=== PATIENT | male | born 1965 | race Caucasian/White ===

== ENCOUNTER 2020-07-07 15:26 | Inpatient (IN) | payer OTHER ==
[~2020-07-07] VITALS: Ht 157.5 cm; Wt 81.2 kg
[2020-07-07] VITALS (36 sets, daily range): BP systolic 40–171; BP diastolic 13–128
[~2020-07-07 15:26] MED LIST: CIPRO500 MG PO; CIPROFLOXACIN500 M1 PO; FLAGYL500 MG PO; HYDROCODONE-AP1 EAC6 PO; LORTAB 5 MG/5001 TAB PO; NORCO 5-325 TA1 EACH PO; PRINIVIL20 MG PO
[2020-07-07 16:28] LABS: HEMOGLOBIN 15.6 gm/dL (14.0-18.0); MCH 32.2 pg (26.0-34.0); MCHC 33.9 g/dL (28.0-37.0); MCV 94.9 fL (80.0-100.0); RBC 4.84 mil/uL (4.50-6.00); RDW 12.8 % (10.5-14.5); WBC 19.5 thou/uL (4.0-11.0)
[2020-07-07 16:44] LABS: CALCIUM 8.2 mg/dL (8.5-10.1); CREATININE 1.2 mg/dL (0.7-1.3); POTASSIUM 3.5 mmol/L (3.5-5.1); TROPONIN-I 0.15 ng/mL (<0.06)
[2020-07-07 19:46] LABS: BE(vivo) -19.4 mmol/L (-2 to +3); HCO3 13.5 mmol/L (22.0-26.0); PCO2 60.9 mmHg (35.0-45.0); PO2 92.3 mmHg (80.0-100.0); pH 6.962 (7.360-7.450); sO2 91.2 % (92.0-98.0)
[2020-07-07 19:51] LABS: HEMATOCRIT 52.8 % (42.0-52.0); MCH 32.4 pg (26.0-34.0); MCHC 33.8 g/dL (28.0-37.0); MCV 95.7 fL (80.0-100.0); PLATELET COUNT 271 thou/uL (150-400); RBC 5.51 mil/uL (4.50-6.00); RDW 12.7 % (10.5-14.5); WBC 23.3 thou/uL (4.0-11.0)
[2020-07-07 19:56] LABS: HEMOGLOBIN 17.8 gm/dL (14.0-18.0)
[2020-07-07 19:58] LABS: CALCIUM 8.7 mg/dL (8.5-10.1); CREATININE 1.4 mg/dL (0.7-1.3)
--- NOTE | 2020-07-07 19:58 | NUR ---
PT CODED AT 1853; PT WENT INTO PULSELESS V-TACH, SEE CODE SHEET FOR FURTHER DETAILS. ROSC OBTAINED AT 1927. DR. SHEPHERD HERE DURING CODE, SPOKE WITH PT'S PRIOR TO ROSC OBTAINED. PARKING LINE PAINTER TEAM CALLED IN. PT BEING PREPARED TO GO TO PARKING LINE PAINTER. MONITOR SINUS TACH AT 102.
[2020-07-07 20:43] LABS: ABSOLUTE NEUTROPHILS 18.6 thou/uL (1.4-8.2)
--- NOTE | 2020-07-07 20:46 | NUR ---
ASSUMED CARE AT POST DIRECTOR OF RESTAURANT, PT ARRIVED BY BED BY RN AND TECH FROM DIRECTOR OF RESTAURANT. PT A&OX4. DURING ADMISSION AT 17:55, PT CONVERTED TO V TACH FOR [address] SHEPHERD PAGED AND NOTIFIED, NEW ORDERS RECEIVED. AT 18:45, PT CODED, DR. BUCKLEY ARRIVED. SEE CODE SHEET FOR DETAILS. WHEN DR. SHEPHERD ARRIVED, RN GAVE REPORT AND UPDATED DR. SHEPHERD. DR. SHEPHERD CALLED PT'S , LIDYA, GAVE HER PT STATUS. DR. MARTINES CONSULTED, PAGED AND NOTIFIED OT INTUBATION AND CURRENT STATUS. NEW ORDERS RECEIVED. DR. SHEPHERD DEFERRED HYPOTHERMIA PROTOCOL TO DR. MARTINES TO DETERMINE. RN ASKED DR. MARTINES, DR. MARTINES INSTRUCTED TO WAIT UNTIL PT RETURNS FROM DIRECTOR OF RESTAURANT AND ASSESS NEURO STATUS TO SEE IF HE FOLLOWS COMMANDS, AND CALL HIM WITH RESULTS TO DETERMINE IF HYPOTHERMIA PROTOCOL IS APPROPRIATE. RN TOLD WATER/WASTEWATER PROJECT ENGINEER RN THE ORDERKYLIE.
[2020-07-07 20:53] LABS: BE(vivo) -14.7 mmol/L (-2 to +3); PCO2 42.6 mmHg (35.0-45.0); PO2 94.2 mmHg (80.0-100.0); pH 7.135 (7.360-7.450); sO2 94.8 % (92.0-98.0)
[2020-07-07 20:55] LABS: BE(vivo) -15.2 mmol/L (-2 to +3); HCO3 15.1 mmol/L (22.0-26.0); PCO2 52.1 mmHg (35.0-45.0); PO2 46.4 mmHg (80.0-100.0); sO2 65.5 % (92.0-98.0)
[2020-07-07 22:29] LABS: CREATININE 1.9 mg/dL (0.7-1.3)
[2020-07-07 22:30] LABS: POTASSIUM 4.9 mmol/L (3.5-5.1)
--- NOTE | 2020-07-07 22:43 | NUR ---
Pt back from cath at 2150 with balloon pump.
[2020-07-07 22:48] LABS: BE(vivo) -11.3 mmol/L (-2 to +3); HCO3 14.8 mmol/L (22.0-26.0); PCO2 34.6 mmHg (35.0-45.0); PO2 140.6 mmHg (80.0-100.0); sO2 98.4 % (92.0-98.0)
[2020-07-07 22:49] LABS: pH 7.249 (7.360-7.450)
[2020-07-07 23:00] LABS: HEMATOCRIT 50.4 % (42.0-52.0); HEMOGLOBIN 17.1 gm/dL (14.0-18.0); MCH 32.6 pg (26.0-34.0); MCHC 33.9 g/dL (28.0-37.0); MCV 96.2 fL (80.0-100.0); RBC 5.24 mil/uL (4.50-6.00); RDW 12.9 % (10.5-14.5); WBC 28.9 thou/uL (4.0-11.0)
[2020-07-07 23:11] LABS: INR 1.2; PROTIME 13.3 Seconds (9.3-11.4)
[2020-07-07 23:14] LABS: HCO3 13.5 mmol/L (22.0-26.0); PCO2 30.8 mmHg (35.0-45.0); PO2 179.5 mmHg (80.0-100.0)
[2020-07-07 23:15] LABS: pH 7.259 (7.360-7.450)
--- NOTE | 2020-07-07 23:40 | NUR ---
Pt not tolerating Propofol for sedation, becomes very bradycardic and hypotensive. Dr. Garcia notified and Propofol dc'd; pt started on Fentanyl and Versed gtts for sedation. During shredding machine knife changer pt became very awake, very aggitated, did not respond to therapeutic communication or touch. Pt calm and RAAS -3 after Fentanyl and Versed gtts infusing.
[2020-07-08] VITALS (56 sets, daily range): BP systolic 74–138; BP diastolic 24–96
--- NOTE | 2020-07-08 01:20 | NUR ---
Pt very bradycardic and hypotensive with sedation, heart rate as low as 48, sinus clary with BBB. Fentanyl and Versed gtts titrated down without much improvement in blood pressure or heart rate. Dr. Garcia notified and Dopamine gtt started at 10 mcg/kg/min at 0100. Pt awake and vomitted moderate amount of gastric contents at 0105. Nursing staff in room with pt and able to immediately suction oral cavity. Zofran order obtained and Fentanyl and Versed gtts titrated to obtain RAAS of -3 (moderate sedation). No further vomitting after Zofran given; BP and heart rate within acceptable parameters after Dopamine started (HR 89, BP 142/63).
[2020-07-08 05:17] LABS: BE(vivo) -5.5 mmol/L (-2 to +3); HCO3 18.9 mmol/L (22.0-26.0); PCO2 35.1 mmHg (35.0-45.0); PO2 171.3 mmHg (80.0-100.0); sO2 99.1 % (92.0-98.0)
[2020-07-08 06:20] LABS: HEMATOCRIT 52.5 % (42.0-52.0); HEMOGLOBIN 17.6 gm/dL (14.0-18.0); MCH 31.9 pg (26.0-34.0); MCHC 33.4 g/dL (28.0-37.0); MCV 95.4 fL (80.0-100.0); RBC 5.5 mil/uL (4.50-6.00); RDW 12.8 % (10.5-14.5); WBC 31.5 thou/uL (4.0-11.0)
[2020-07-08 06:45] LABS: ALBUMIN 3.6 g/dL (3.4-5.0); ANION GAP 14 mmol/L (7-16); BUN 31 mg/dL (7-18); CALCIUM 8.6 mg/dL (8.5-10.1); CHLORIDE 94 mmol/L (98-107); CHOLESTEROL 178 mg/dL (<200); CO2 23 mmol/L (21-32); CREATININE 2.1 mg/dL (0.7-1.3); GLUCOSE 451 mg/dL (74-106); HDL CHOLESTEROL 48 mg/dL (>40); LDL CHOLESTEROL 110 mg/dL (<100); POTASSIUM 4.8 mmol/L (3.5-5.1); SGOT 736 U/L (15-37); SGPT 196 U/L (30-65); SODIUM 131 mmol/L (136-145); TC:HDL 3.7 Ratio (Not establshd); TOTAL BILIRUBIN 1.4 mg/dL (0.2-1.0); TOTAL PROTEIN 7.3 g/dL (6.4-8.2); TRIGLYCERIDE 104 mg/dL (<150); VLDL 21 mg/dL (<40)
[2020-07-08 07:04] LABS: TROPONIN-I > 200.00 ng/mL (<0.06)
--- NOTE | 2020-07-08 08:35 | H ---
[facility] [place] [address] HISTORY AND PHYSICAL Name: JON BEEBE Room #: 240-P ADM IN M.R.#: [id number] Admission: 07/07/20 Attend Phys: Michael Dsouza MD Discharge: Date of : 61 Report #: [id number] THIS REPORT FOR: cc: Markus George Aaron DO Park,Michael Hernández MD ~ DATE OF SERVICE: 07/07/2020 INDICATION: Chest pain. HISTORY OF PRESENT ILLNESS: This is a 55-year-old gentleman with a history of hypertension, diabetes mellitus, tobacco use, presenting with acute onset of chest pain. He was working outside when he developed substernal chest pain radiating down the left arm. It was associated with shortness of breath. He presented immediately to the ER at [facility], the initial EKG revealed ST elevation in the precordial and high lateral leads. He was treated with heparin, aspirin, nitro and morphine. He was airlifted to [facility] for emergent cardiac catheterization. There is no history of nausea or diarrhea. The patient reports having recent symptoms of a cold for the past 2 days. ALLERGIES: TETANUS AND PENICILLIN. PAST MEDICAL HISTORY: Diabetes mellitus and hypertension. MEDICATIONS: Include metformin and lisinopril. SOCIAL HISTORY: Uses chewing tobacco on a daily basis. Negative cigarettes. FAMILY HISTORY: Father with a history of an [place] in his 60s. REVIEW OF SYSTEMS: See HPI. PHYSICAL EXAMINATION: VITAL SIGNS: Blood pressure is 105/90 and heart rate is 120 beats per minute. GENERAL APPEARANCE: This is a well-developed, well-nourished male in moderate distress. HEENT: Normocephalic, atraumatic. Oral mucosa is moist. NECK: Supple. LUNGS: Diminished breath sounds at the bases. CARDIAC: Tachycardic. S1, S2 positive. ABDOMEN: Soft, nontender. EXTREMITIES: No edema, no cyanosis. DIAGNOSTIC STUDIES: ECG from [facility] reveals sinus [facility] [address] [place] [address] HISTORY AND PHYSICAL Name: JON BEEBE Room #: 240-P [facility] IN .R.#: [id number] Admission: 07/07/20 Attend Phys: Michael Dsouza MD Discharge: Date of : 61 Report #: [id number] rhythm with a 2-[address] elevation in the precordial leads, leads I and aVL. ASSESSMENT AND PLAN: 1. Acute anterolateral myocardial infarction. The patient will be taken emergently to the cardiac laborer wood preserving plant. 2. Hypertension. We will resume lisinopril when blood pressure allows. 3. Tobacco use, complete cessation of all tobacco products has been highly encouraged. 4. Hypercholesterolemia, we will need to treat with statin therapy. 5. Diabetes mellitus, check fingersticks and manage accordingly as per hospitalist. <ELECTRONICALLY SIGNED> By: Michael Dsouza MD 07/08/20 0835 1635 1712 MD divina Jacobs
[2020-07-08 10:29] LABS: BE(vivo) -2.5 mmol/L (-2 to +3); HCO3 20.6 mmol/L (22.0-26.0); PCO2 32.5 mmHg (35.0-45.0); PO2 103.7 mmHg (80.0-100.0); sO2 97.9 % (92.0-98.0)
--- NOTE | 2020-07-08 18:14 | NUR ---
ASSUMED CARE AT 0700, ASSESSMENT AND VITAL SIGNS COMPLETED PER ICU PROTOCOL. DR. SHEPHERD BEDSIDE. INSTRUCTED RN TO CUT LEVOPHED AT CHARTED QUANTITIES, DR. SHEPHERD STAYED THE ENTIRE TIME TO MONITOR PATIENT. DR. SHEPHERD WANTED PT TRANSFERRED TO REPLACED BY [facility]. RN LEFT UNIT WITH RNX2, ABORIGINAL EDUCATION TEACHER, AND FIREFIGHTERX2 WITH BALLOON PUMP, IV PUMPS AND GTTS INFUSING, AND ON THE MONITOR. PT STABLE THROUGH TRANSPORT AND TRANSFERRING ONTO THE UNIT. [facility] USED THEIR PUMPS AND TUBING, SWITCHED TO THEIR BALLOON PUMP. REPORT GIVEN TO [facility] BEFORE TRANSPORT TO [facility] RN.
--- NOTE | 2020-07-09 07:37 | EKG ---
[address] [place] [address] ELECTROCARDIOGRAM REPORT Name: JON BEEBE Room #: 240-P [facility] IN .R.#: [id number] Admission: 07/07/20 Attend Phys: Michael Dsouza MD Discharge: 07/08/20 Date of : 61 Report #: [id number] [facility] Test Date: 2020-07-07 Test Time: 19:32:58 Pat Name: JON BEEBE Department: Room: 240 P Gender: M Student Life Vice President: YONATAN : 1965 Requested By: Michael Dsouza Order Number: [id number] : Ronaldo Dos Santos Measurements Intervals [place] Rate: 109 P: 67 ME: 169 QRS: -19 QRSD: 106 T: 85 QT: 345 QTc: 465 Interpretive Statements Sinus tachycardia Probable left atrial enlargement Borderline left axis deviation Anterolateral infarct, acute (LAD) No previous ECG available for comparison Electronically Signed On 07-09-2020 7:37:41 STUDY LEAD by Ronaldo Dos Santos [email or web address] <ELECTRONICALLY SIGNED> By: Ronaldo Dos Santos MD, [facility] 07/09/20 0737 31 31 Ronaldo Dos Santos MD, FACC /EPI
--- NOTE | 2020-07-09 07:38 | EKG ---
[place] [address] [facility] [facility] [place] [place] [address] ELECTROCARDIOGRAM REPORT Name: JON BEEBE Room #: 240-P [facility].#: [id number] Admission: 07/07/20 Attend Phys: Michael Dsouza MD Discharge: 07/08/20 Date of : 61 Report #: [id number] [facility] Test Date: 2020-07-07 Test Time: 22:22:33 Pat Name: JON BEEBE Department: Room: Gender: M Sole Cementer: UNKNOWN : 1965 Requested By: Michael Dsouza Order Number: [id number] : Ronaldo Dos Santos Measurements Intervals [place] Rate: 61 P: 34 RI: 154 QRS: 20 QRSD: 88 T: 25 QT: 425 QTc: 428 Interpretive Statements Sinus rhythm Lateral infarct, acute (LAD) Anterior infarct, old No previous ECG available for comparison Electronically Signed On 07-09-2020 7:38:05 CARDIOVASCULAR RADIOLOGIC TECHNOLOGIST by Ronaldo Dos Santos [email or web address] <ELECTRONICALLY SIGNED> By: Ronaldo Dos Santos MD, [facility] 07/09/20 0738 2222 Ronaldo Dos Santos MD, FACC /EPI
--- NOTE | 2020-07-09 07:38 | EKG ---
[place] [address] [facility] [place] [address] ELECTROCARDIOGRAM REPORT Name: JON BEEBE Room #: 240-[facility] IN .R.#: [id number] Admission: 07/07/20 Attend Phys: Michael Dsouza MD Discharge: 07/08/20 Date of : 61 Report #: [id number] [facility] Test Date: 2020-07-08 Test Time: 07:20:00 Pat Name: JON BEEBE Department: Room: 240 P Gender: M Soft Drink Powder Mixer: : 1965 Requested By: Michael Dsouza Order Number: [id number] : Ronaldo Dos Santos Measurements Intervals [place] Rate: 95 P: 35 TN: 166 QRS: -17 QRSD: 80 T: 55 QT: 362 QTc: 455 Interpretive Statements Sinus rhythm Extensive anterior infarct, acute (LAD) Compared to ECG 07/07/2020 22:22:33 No significant changes Electronically Signed On 07-09-2020 7:38:27 OIL LABORATORY ANALYST by Ronaldo Dos Santos [email or web address] <ELECTRONICALLY SIGNED> By: Ronaldo Dos Santos MD, [facility] 07/09/20737 9 9 Ronaldo Dos Santos MD, FACC /EPI
--- NOTE | 2020-07-09 10:25 | 2DMMODE ---
[facility] [place] [address] 2 D/M-MODE ECHOCARDIOGRAM Name: JON BEEBE Room #: 240-P DIS IN M.R.#: [id number] Admission: 07/07/20 Attend Phys: Michael Dsouza MD Discharge: 07/08/20 Date of : 61 Report #: [id number] THIS REPORT FOR: cc: Markus George Aaron DO Park, Jin S. MD ~ APPROVED REPORT Study performed: 07/07/2020 20:51:49 EXAM: Limited 2D and color flow Echocardiogram Patient Location: [facility] Room #: 240 Status: stat Other Information Study Quality: Fair Left Ventricle The left ventricle is normal size. Left ventricular systolic function is at least moderately decreased. Mitral Valve Trace mitral regurgitation. Tricuspid Valve Mild to moderate tricuspid regurgitation. Pericardium There is no pericardial effusion. <Conclusion> The left ventricle is normal size. Left ventricular systolic function is at least moderately decreased. Trace mitral regurgitation. Mild to moderate tricuspid regurgitation. There is no pericardial effusion. <ELECTRONICALLY SIGNED> By: Michael Dsouza MD 07/09/20 1025 1025 1025 Michael Dsouza MD /INF
--- NOTE | 2020-07-09 10:32 | CATHLAB ---
[facility] [place] [address] INVASIVE PROCEDURE REPORT Name: JON BEEBE Room #: 240-P [facility] IN M.R.#: [id number] Admission: 07/07/20 Attend Phys: Michael Dsouza MD Discharge: 07/08/20 Date of : 61 Report #: [id number] THIS REPORT FOR: cc: Markus George Aaron DO Park, Jin S. MD ~ APPROVED REPORT Study performed: 07/07/2020 15:29:29 Patient Details Patient Status: ED Room #: 240 The patient is a 55 year-old male Event Personnel Michael Dsouza Clothing Cutter, Adelina Nazario RN RN, Yoanna Rueda RT(R)() Shraddha Valle Ja'net RTR Monitor Procedures Performed Left Heart Cath w/or w/o Coronaries [id number] [facility] Revasc Chronic Ttl Occl Single LAD C9607 CTOREVSING Indication STEMI (>0 to less than or equal to 6 hours), Dyspnea, Chest pain, The patient presented to [facility] with chest pain, EKG revealed ST elevation in leads V1 through V5, I and aVL. He was treated with heparin, aspirin, nitro and morphine. He was transferred via helicopter to [facility] for emergent cardiac catheterization. Risk Factors Family History, Hypercholesterolemia, Hypertension, Diabetes Tobacco History (Chewing tobacco) Procedure Narrative The Right Groin^ was infiltrated with 1% Lidocaine subcutaneous anesthesia. A PINNACLE 6FR Sheath #[id number] sheath was inserted into the RFA^. Coronary angiography was performed using coronary diagnostic catheters. The right coronary system was accessed and visualized with a JR4 catheter. The left coronary system was accessed and visualized with a JL4 catheter. The left ventricle was accessed and visualized with a PIGTAIL catheter. The patient tolerated the procedure well and there were no complications associated with the procedure. [facility] [place] [address] INVASIVE PROCEDURE REPORT Name: JON BEEBE SHAISTA Room #: 240-P COUNTS INCLUDE 234 BEDS AT THE [facility].#: [id number] Admission: 07/07/20 Attend Phys: Michael Dsouza MD Discharge: 07/08/20 Date of : 61 Report #: [id number] Intraoperative Conscious Sedation Sedation start time: 15:39 Case end Time: 16:26 Fluoro Time: 10.13 minutes Dose: DAP 89904.20 cGycm2 1496 mGy Contrast Type and Amount: Visipaque 295 ml Coronary Angiography The patient's coronary anatomy is right dominant. Diagnostic Cath Left Main The left main artery is a patent vessel, with no flow-limiting lesions. LAD The LAD has a total occlusion in the proximal segment. After reperfusion, there is mild to moderate disease in the midsegment. Diagonal 1 This is a small to moderate-sized caliber vessel, patent with no flow-limiting lesions. Diagonal 2 This is a small to moderate-sized caliber vessel, patent with no flow-limiting lesions. Circumflex The left circumflex artery supplies 1 obtuse marginal artery. OM1 This is a moderate-sized caliber vessel, with mild disease in the midsegment. Right Coronary The RCA has mild diffuse disease in the mid and distal segments, 20 to 30%. R PDA The PDA is a patent vessel, terminates in the mid segment of the inferior wall. RPLV This branch has no flow-limiting lesions and terminates early in its course. It does not supply a significant portion of the inferolateral wall. Left Ventriculography The left ventricle is dilated in size with Diminished contractility. The left ventricular ejection fraction is estimated to be 25-30%. Left ventricular wall motion abnormalities are present. There is severe hypokinesis of the anterolateral, apical and mid to distal inferior segments. Hemodynamics The aortic pressure is 145/102 mmHg with a mean of 120 mmHg. The left ventricular pressure is 127/12 mmHg with a mean of mmHg. The left ventricular end diastolic pressure is 30 mmHg. Pullback from the left ventricle to the aorta revealed no gradient across the aortic [facility] [address] [place] [address] INVASIVE PROCEDURE REPORT Name: JON BEEBE Room #: 240-P [facility] IN M.R.#: [id number] Admission: 07/07/20 Attend Phys: Michael Dsouza MD Discharge: 07/08/20 Date of : 61 Report #: [id number] valve. PCI Technique Lesion Percutaneous coronary intervention was performed on the proximal left anterior descending artery segment. The lesion stenosis prior to intervention was 100% with ARNAV 0 flow. A VISTA 6FR XB 3.5 #[id number] Guide Catheter was used to engage the LAD ostium. A Luge Wire .014 x 182CM #[id number] Interventional Guidewire was used to cross the lesion. BALLOON DILATION A Balloon catheter Euphora RX 2.5 x 12 #[id number] was inserted and inflated up to 8.00atm for 5seconds. Additional Inflation: 8.00atm for 4seconds. STENT DEPLOYMENT A stent RESOLUTE NEAL RX 3.0 X 18 #[id number] was inserted and inflated up to 14.00atm for 15seconds. POST STENT DEPLOYMENT BALLOON DILATION A Balloon catheter TREK NC RX 3.0 X 15 #[id number] was inserted and inflated up to 18.00atm for 14seconds. Additional Inflation: 18.00atm for 8seconds. Additional Inflation: 18.00atm for 10seconds. Final angiography reveals 0 % stenosis with ARNAV 3 flow. Conclusion 1. Successful insertion of a drug-eluting stent into the proximal LAD occlusion. 2. There is mild disease in the RCA. 3. There is severe LV dysfunction. 4. Recommend dual antiplatelet therapy and aggressive risk factor management. <ELECTRONICALLY SIGNED> By: Michael Dsouza MD 07/09/20 1032 31 31 Michael Dsouza MD /INF
--- NOTE | 2020-07-09 11:04 | CATHLAB ---
[facility] [place] [address] INVASIVE PROCEDURE REPORT Name: JON BEEBE Room #: 240-P [facility] IN M.R.#: [id number] Admission: 07/07/20 Attend Phys: Michael Dsouza MD Discharge: 07/08/20 Date of : 61 Report #: [id number] THIS REPORT FOR: cc: Markus George Aaron DO Park, Jin S. MD ~ APPROVED REPORT Study performed: 07/07/2020 19:58:41 Patient Details Patient Status: In-Patient Room #: 240 The patient is a 55 year-old male Event Personnel Michael Dsouza Supervisor Poultry Processing, Mauricio Llanes RTR Monitor, Adelina Nazario RN RN, Yoanna Rueda RT(R)() Scrub Procedures Performed Art Access - R femoral artery* Teofilo Access - R femoral vein Right and Left Heart Cath w/or w/o Coronarie [id number] [facility] IABP Placement [id number] IABPI Indication Abnormal ECG, CHF Current Status: , Arrhythmia, Cardiomyopathy, The patient had just presented with an anterior wall KY undergoing PCI with placement of a drug-eluting stent into the LAD occlusion. While in the ICU, the patient developed V. fib arrest requiring multiple shocks/CPR/epi/bicarb. Postarrest ECG revealed anterior Q waves with ST elevation, suggesting evolving KY/aneurysm. Risk Factors Hypercholesterolemia, Coronary Artery DiseaseHypertension, Diabetes Tobacco History () Previous Procedures/Diagnoses Previous PCI, Previous [place] Procedure Narrative The patient was brought emergently to the Cardiac Catheterization Laboratory and was prepped and draped in a sterile manner. The Right Groin^ was infiltrated with 1% Lidocaine subcutaneous anesthesia. A Right Heart Catheterization was performed with a 7 Fr. [place]-Marley catheter and pressure were recorded. Cardiac outputs were obtained by [facility] [place] [address] INVASIVE PROCEDURE REPORT Name: JON BEEBE SHAISTA Room #: [address] [place] [address] IN M.R.#: [id number] Admission: 07/07/20 Attend Phys: Michael Dsouza MD Discharge: 07/08/20 Date of : 61 Report #: [id number] the Carmelina method. A PINNACLE 6FR Sheath #[id number] sheath was inserted into the RFA^. Coronary angiography was performed using coronary diagnostic catheters. The right coronary system was accessed and visualized with a JR4 catheter. The left coronary system was accessed and visualized with a JL4 catheter. The patient tolerated the procedure well and there were no complications associated with the procedure. A THERMODILUTION SWAN WAS LEFT IN THE RIGHT VENOUS VEIN AND SUTURED DOWN. A 8FR FIBEROPTIX 40CC BALLOON WAS LEFT IN THE RIGHT FEMORAL ARTERY AND SUTURED IN PLACE. Intraoperative Conscious Sedation Sedation start time: 20:16 Case end Time: 21:18 Fluoro Time: 5.20 minutes Dose: DAP 4450.30 cGycm2 401 mGy Contrast Type and Amount: Visipaque 80 ml Coronary Angiography The patient's coronary anatomy is right dominant. Diagnostic Cath Left Main Left main artery is patent with no flow-limiting lesions. LAD The proximal LAD stent is patent with ARNAV-3 blood flow. There is mild to moderate diffuse disease in the midsegment. The distal LAD extends around the apex but terminates before the inferior wall. Diagonal 1 There is a small to moderate-sized caliber vessel, with no flow-limiting lesions. Diagonal 2 There is a small to moderate-sized caliber vessel, with no flow-limiting lesions. Circumflex The left circumflex artery supplies 1 OM vessel. OM1 This is a moderate-sized caliber vessel, with no flow-limiting lesions. Right Coronary There is mild disease in the RCA. R PDA There is a small to moderate-sized caliber vessel, with no flow-limiting lesions. RPLV There is a small to moderate-sized caliber vessel, with no flow-limiting lesions. Hemodynamics The pulmonary artery pressure is 47/38 mmHg with a mean of 42 mmHg. The mean pulmonary capillary wedge pressure is 28 mmHg. The aortic pressure is 124/78 mmHg with a mean of 95 mmHg. The left ventricular pressure is 61/7 mmHg with a mean of mmHg. The left ventricular end [facility] [address] [place] [address] INVASIVE PROCEDURE REPORT Name: JON BEEBE Room #: 240-P [facility] IN M.R.#: [id number] Admission: 07/07/20 Attend Phys: Michael Dsouza MD Discharge: 07/08/20 Date of : 61 Report #: [id number] diastolic pressure is 15 mmHg. PaO2 saturation is 67.70 %. Arterial saturation is 94.00 %. The cardiac output using the Carmelina method is 3.63 L/min. The cardiac index using the Carmelina method is 1.99 L/min/m2. Conclusion 1. The proximal LAD stent is patent with no evidence of flow-limiting lesions. 2. The left circumflex and RCA arteries are patent with no flow-limiting lesions. 3. Right heart cardiac catheterization performed and Blue [place]-Marley catheter left in place. 4. Intra-aortic balloon pump placed for cardiogenic shock. 5. The patient tolerated the procedure, with stable hemodynamics. <ELECTRONICALLY SIGNED> By: Michael Dsouza MD 07/09/20 1104 1104 1104 Michael Dsouza MD /INF
== END 2020-07-08 14:00 | disposition short-term general hospital (02) | DRG 270 ==
LOC: 2N 15:26 → ICU 17:11
PROVIDERS: Internal Medicine Pulmonary Disease; ADMIT Internal Medicine Cardiovascular Disease; ATTEND Internal Medicine Cardiovascular Disease
PROC: 5A0935A Assistance with Respiratory Ventilation, Less than 24 Consecutive Hours, High Flow/Velocity Cannula (ICD-10-PCS; principal; 2020-07-07)
PROC: 4A12XSH Monitoring of Cardiac Vascular Perfusion using Indocyanine Green Dye, External Approach (ICD-10-PCS; principal; 2020-07-07)
PROC: 4A023N7 Measurement of Cardiac Sampling and Pressure, Left Heart, Percutaneous Approach (ICD-10-PCS; principal; 2020-07-07)
PROC: 5A12012 Performance of Cardiac Output, Single, Manual (ICD-10-PCS; principal; 2020-07-07)
PROC: 0BH17EZ Insertion of Endotracheal Airway into Trachea, Via Natural or Artificial Opening (ICD-10-PCS; principal; 2020-07-07)
PROC: B211YZZ Fluoroscopy of Multiple Coronary Arteries using Other Contrast (ICD-10-PCS; principal; 2020-07-07)
PROC: 4A023N8 Measurement of Cardiac Sampling and Pressure, Bilateral, Percutaneous Approach (ICD-10-PCS; principal; 2020-07-07)
PROC: 5A1935Z Respiratory Ventilation, Less than 24 Consecutive Hours (ICD-10-PCS; principal; 2020-07-07)
PROC: 5A02210 Assistance with Cardiac Output using Balloon Pump, Continuous (ICD-10-PCS; principal; 2020-07-07)
PROC: B215YZZ Fluoroscopy of Left Heart using Other Contrast (ICD-10-PCS; principal; 2020-07-07)
PROC: 027034Z Dilation of Coronary Artery, One Artery with Drug-eluting Intraluminal Device, Percutaneous Approach (ICD-10-PCS; principal; 2020-07-07)
PROC: B211YZZ Fluoroscopy of Multiple Coronary Arteries using Other Contrast (ICD-10-PCS; 2020-07-07)
DX: I21.09 ST elevation (STEMI) myocardial infarction involving other coronary artery of anterior wall (principal); J96.01 Acute respiratory failure with hypoxia; I46.9 Cardiac arrest, cause unspecified; I48.20 Chronic atrial fibrillation, unspecified; E87.2 Acidosis; E11.9 Type 2 diabetes mellitus without complications; I95.9 Hypotension, unspecified; I10 Essential (primary) hypertension; D72.829 Elevated white blood cell count, unspecified; E78.00 Pure hypercholesterolemia, unspecified; Z20.822 Contact with and (suspected) exposure to COVID-19; Z79.899 Other long term (current) drug therapy; Z79.84 Long term (current) use of oral hypoglycemic drugs
CPT/HCPCS: 10078